=== PATIENT | female | born 1955 | race Caucasian/White ===

== ENCOUNTER 2021-02-24 13:34 | Emergency (ER) | payer OTHER ==
[2021-02-24] MEDS ORDERED: ETODOLAC500 MG PO (17:12)
== END 2021-02-24 17:20 | disposition home or self-care (01) ==
LOC: FER 13:34
DX: M17.11 Unilateral primary osteoarthritis, right knee (principal); M16.11 Unilateral primary osteoarthritis, right hip; I10 Essential (primary) hypertension; E78.5 Hyperlipidemia, unspecified; F17.200 Nicotine dependence, unspecified, uncomplicated; Z79.899 Other long term (current) drug therapy; M25.561 Pain in right knee
CPT/HCPCS: 73501; 73560; 93922; 93971